=== PATIENT | female | born 1990 | race Caucasian/White ===

== ENCOUNTER 2017-10-26 22:01 | Emergency (ER) | payer BC, OTHER ==
[2017-10-26 22:54] LABS: Bilirubin Small (Negative); Blood, Urine Moderate (Negative); Clarity Cloudy (Clear); Glucose, Urine (Dipstick) Negative (Negative); Leukocyte Small (Negative); Nitrite Negative (Negative); Protein, Urine (Dipstick) 30 mg/dL (Neg-Trace)
[2017-10-26 22:55] LABS: Specific Gravity, Urine 1.034 (1.002-1.036)
[2017-10-26 22:59] LABS: Pregnancy Test - Urine (BHCG) Negative (Negative); Pregu Control Background? CLEAR/WHITE (CLR/WHITE); Pregu Control Bar Appear? YES (CONTROL BAR); Specific Gravity 1.034 (1.002-1.036)
[2017-10-26 23:05] LABS: Hyaline Casts/LPF NONE SEEN LPF (0-3 Hyaline); RBC/HPF 0-3 HPF (0-3)
[2017-10-26 23:06] LABS: Bacteria/HPF 2+ HPF (None Seen)
== END 2017-10-26 23:17 | disposition home or self-care (01) ==
LOC: SCSER 22:01
DX: J06.9 Acute upper respiratory infection, unspecified (principal); N39.0 Urinary tract infection, site not specified
CPT/HCPCS: 81003; 81015; 81025; 87081; 87430; 87804; 99283

== ENCOUNTER 2019-01-09 16:55 | Emergency (ER) | payer BC ==
--- NOTE | 2019-01-09 18:31 | ULT ---
Right lower extremity venous Doppler ultrasound: 01/09/2019 COMPARISON: None HISTORY: female with right lower extremity swelling, edema, assess for DVT TECHNIQUE: Multiplanar grayscale sonographic imaging of the venous structures right lower extremity. Color flow and spectral analysis FINDINGS: Right common femoral vein, greater saphenous vein, profunda femoral vein, femoral vein, pop liteal vein, and posterior tibial vein are patent. Normal blood flow, augmentation, and compression within the deep venous system on the right. No evidence for DVT. IMPRESSION: No evidence for deep venous thrombosis of the right lower extremity.
[2019-01-09 19:05] LABS: Bilirubin Negative (Negative); Blood, Urine Negative (Negative); Clarity CLEAR (Clear); Glucose, Urine (Dipstick) Negative (Negative); Leukocyte Small (Negative); Nitrite Negative (Negative); Protein, Urine (Dipstick) Negative (Neg-Trace); Specific Gravity, Urine 1.016 (1.002-1.036); Urobilinogen 0.2 mg/dL (0.2-1.0); pH, Urine 6.5 (5.0-9.0)
[2019-01-09 19:08] LABS: Hyaline Casts/LPF 0-3 HYALINE CAST LPF (0-3 Hyaline); RBC/HPF 0-3 HPF (0-3)
[2019-01-09 19:21] LABS: Bacteria/HPF 1+ HPF (None Seen)
== END 2019-01-09 19:34 | disposition home or self-care (01) ==
LOC: ERS 16:55
DX: O99.89 Other specified diseases and conditions complicating pregnancy, childbirth and the puerperium (principal); R60.0 Localized edema; O99.342 Other mental disorders complicating pregnancy, second trimester; F41.9 Anxiety disorder, unspecified; F32.9 Major depressive disorder, single episode, unspecified; Z3A.24 24 weeks gestation of pregnancy
CPT/HCPCS: 81003; 81015; 87086

== ENCOUNTER 2019-03-18 13:24 | Day surgery (SDC) | payer BC ==
[2019-03-18] MEDS ORDERED: hydrALAZINE 20 MG/ML VIAL SLOW IVP PRN (13:56)
[2019-03-18] MEDS ORDERED: Ondansetron PF 4 MG/2 ML Vial IVP SCH (14:00)
[2019-03-18] MEDS ORDERED: Lactated Ringer's 1,000 ML IV SCH (14:00)
[2019-03-18] MEDS ORDERED: Ondansetron PF 4 MG/2 ML Vial ONE (14:06)
[2019-03-18 14:23] VITALS: BMI 31.4
--- NOTE | 2019-03-18 17:47 | PRG ---
DATE OF SERVICE: 03/18/2019 PRIMARY OB: Carmen Ha MD. CHIEF COMPLAINT: Nausea, vomiting, and diarrhea. HISTORY OF PRESENT ILLNESS: The patient is a 28-year-old, G1, P0 female with an intrauterine at 33 weeks and 5 days, who presented to Labor and Delivery today after experiencing overnight and this morning persistent nausea and vomiting with diarrhea beginning this morning. The patient called and was counseled to come here to Labor and Delivery for evaluation. The patient reports that she does have a diagnosis of preeclampsia and that her doctor has considering an early induction. The patient denies any recent illness with fever or cough, headache, or chest pain. She has experienced some shortness of breath off and on that she attributes to her asthma and primarily to her . She does have asthma and has used albuterol intermittently last being used a couple months ago. The patient does report nausea and vomiting and is able to keep down some fluid. She reports that she has incontinence when she vomits and is unable to tell me how often she is urinating from her baseline. Notes that she has peed today at least once this morning. The patient denies constipation. Reports some hip problems baseline for the . Denies bleeding or leakage of fluid. Denies urinary urgency or frequency. PAST MEDICAL HISTORY: Significant for asthma and reported preeclampsia with this . PAST SURGICAL HISTORY: She has had a breast augmentation. ALLERGIES: NO KNOWN DRUG ALLERGIES. OB LABS: Unavailable at time of dictation. SOCIAL HISTORY: Denies drug, alcohol, or tobacco use. MEDICATIONS: 1. Albuterol p.r.n. 2. vitamins. LABORATORY DATA: Reviewing labs from 2 days ago from the clinic, the patient shows no evidence of lab abnormalities with normal platelets, normal LFTs, and normal creatinine. REVIEW OF SYSTEMS: Per HPI. PHYSICAL EXAMINATION: VITAL SIGNS: Blood pressures over 2 hours have all been within normal limits, 130s over 60s to 70s. Heart rate in the 90s. Saturating 100% on room air. GENERAL: She appears to be in no acute distress. She is alert, oriented, cooperative, and pleasant to interact with. HEAD: Normocephalic and atraumatic. LUNGS: Clear to auscultation bilaterally. HEART: Tachycardic on initial presentation with a regular rhythm. ABDOMEN: Gravid, soft, and nontender. EXTREMITIES: Nontender and nonedematous. : Exam has been deferred at this time. heart tracing initially was noted to be in the 170s with moderate long-term variability. Tocometer not showing any contraction pattern. After receiving a liter and half of IV fluids, baseline had dropped down in the 150s with moderate long-term variability positive 15 x 15 accelerations and the patient was able to urinate. With recent labs a couple days ago, we have not repeated labs here in the Labor and Delivery. ASSESSMENT AND PLAN: The patient is a 28-year-old primipara with gastroenteritis, which has been presenting fairly frequently in recent weeks. The patient has been given reassurance. She has been hydrated, has not had any vomiting since being given Zofran, though she did vomit twice prior to that. The patient is being discharged to home with reassurance. She has been given a prescription of Zofran for p.r.n. use at home and encouraged to stay hydrated. The patient will follow up with her primary OB, Dr. Ha tomorrow for a scheduled visit and ultrasound. Fetus has a category 1 tracing and reactive NST and the patient has no signs or symptoms of worsening preeclampsia at this time. Job ID: [id number]
== END 2019-03-18 16:10 | disposition home health service (06) ==
LOC: L&D/OP 13:24
PROVIDERS: ATTEND Student in an Organized Health Care Education/Training Program
DX: O99.613 Diseases of the digestive system complicating pregnancy, third trimester (principal); K52.9 Noninfective gastroenteritis and colitis, unspecified; O99.513 Diseases of the respiratory system complicating pregnancy, third trimester; J45.909 Unspecified asthma, uncomplicated; Z3A.33 33 weeks gestation of pregnancy; Z88.2 Allergy status to sulfonamides; Z88.1 Allergy status to other antibiotic agents
CPT/HCPCS: 96360; 96361; 96375; 99283; J2405

== ENCOUNTER 2019-03-23 12:49 | Inpatient (IN) | payer BC ==
[2019-03-23 13:31] VITALS: BMI 31.3
[2019-03-23 14:08] LABS: Amnisure Test RUPTURE DETECTED (No Rupture)
[2019-03-23 14:09] LABS: Amnisure Internal Control QC ACCEPTABLE (ACCEPTABLE)
[2019-03-23] MEDS: Lactated Ringer's 1,000 ML IV SCH ×2 (14:33→23:06)
[2019-03-23] MEDS ORDERED: NS w/ Oxytocin 10 units 500 ML ONE (15:00)
[2019-03-23] MEDS ORDERED: hydrALAZINE 20 MG/ML VIAL SLOW IVP PRN (15:11)
[2019-03-23] MEDS ORDERED: Lactated Ringer's 1,000 ML IV SCH (15:11)
[2019-03-23] MEDS ORDERED: HYDROcodone/Acetaminophen 5/325 mg Tablet PO PRN ×2 (15:11)
[2019-03-23] MEDS ORDERED: Ibuprofen 800 MG TAB PO PRN (15:11)
[2019-03-23] MEDS ORDERED: Butorphanol Tartrate 1 MG/ML VIAL SLOW IVP PRN (15:11)
[2019-03-23] MEDS ORDERED: Lidocaine 1% (PF) 30 ML VIAL SC PRN (15:11)
[2019-03-23] MEDS ORDERED: Promethazine HCl 25 MG/ML VIAL IM PRN ×2 (15:11→22:29)
[2019-03-23] MEDS ORDERED: Ondansetron PF 4 MG/2 ML Vial IVP PRN ×2 (15:11→22:29)
[2019-03-23 15:41] LABS: Hemoglobin 10.9 g/dL (12.0-16.0); Mean Corpuscular HGB CONC 32.9 g/dL (32.0-36.0); Mean Corpuscular Hemoglobin 27.4 pg (27.0-31.0); Mean Corpuscular Volume 83.5 fL (78.0-98.0); Platelet Count 157 thou/uL (130-400); RBC Distribution Width 13.9 % (11.5-14.5); Red Blood Cell (RBC) Count 3.98 mill/uL (4.20-5.40)
[2019-03-23 16:16] LABS: Bacteria/HPF None Seen HPF (None Seen); Bilirubin Negative (Negative); Blood, Urine Negative (Negative); Clarity Clear (Clear); Glucose, Urine (Dipstick) Normal (Negative); Leukocyte Negative Leu/uL (Negative); Mucous/LPF Rare LPF (<2+); Nitrite Negative (Negative); Protein, Urine (Dipstick) 10 mg/dL (Neg-Trace); Urobilinogen Normal mg/dL (Less than 2)
[2019-03-23 16:19] LABS: Syphilis Antibody Nonreactive (Nonreactive); Syphilis Antibody Index 0.03 S/CO (<1.00 Non-Reactive)
[2019-03-23 16:20] LABS: HBSAg Index 0.52 S/CO (0-0.99); Hep B Surf Ag Non-Reactive S/CO (NonReactive)
[2019-03-23 16:44] LABS: AST (SGOT) 16 U/L (5-34); Anion Gap 15 mmol/L (10-20); BUN (Urea Nitrogen) 6 mg/dL (7.0-18.7); Calc. Creatinine Clearance 250 mL/min (70-130); Calcium 8.7 mg/dL (7.8-10.44); Carbon Dioxide 21 mmol/L (22-29); Chloride 105 mmol/L (98-107); Estimated GFR-MDRD Greater than 90; Glucose 71 mg/dL (70-105); Potassium 3.8 mmol/L (3.5-5.1); Sodium 137 mmol/L (136-145)
--- NOTE | 2019-03-23 18:21 | PDOC.LDHP ---
Labor and Delivery H&P Chief complaint: loss of fluid HPI: 28yo at 34w3d by LMP c/o LOF clear ever since 0800 this am. Some cramps, no VB. No sx PIH. 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 Current medications: pre-lester vitamins, other (symbicort, albuterol, iron) Previous surgical history: other (breast aug, LEEP) Allergies/Adverse Reactions: Allergies Allergy/AdvReac Type Severity Reaction Status Date / Time erythromycin base Allergy Verified 03/23/19 13:32 [From Pediazole] sulfisoxazole Allergy Verified 03/23/19 13:32 [From Pediazole] Social history: none - Physical Exam Vital signs reviewed and normal: yes Abnormal vital signs: mild range BP x 1 General: NAD Heart: RRR Lungs: CTAB Abdomen: gravid Extremeties: no edema FHT: category 1 [place] contractions every: 4-5min - Vaginal Exam cm dilated: 2 Effacement: 90% Station: -2 - OB Labs Blood type: O RH: positive Antibody Screen: negative HIV: negative RPR: negative HEPSAg: negative 1 hour GCT: negative GBS: negative Urine drug screen: negative Rubella: immune - Assessment L&D Assessment: premature rupture of membranes - Plan Plan: admit to L&D, labor augmentation if indicated, informed consent obtained, anesthesia consult for pain management -: PIH labs wnl today, BP nl-mild, no sx PIH. If severe features will Mag Prematurity- s/p BMZ last week GBS negative.
[2019-03-23] MEDS ORDERED: Fentanyl 4 mcg/Bup 0.1% Cadd 100 ML ONE (21:49)
[2019-03-23] MEDS ORDERED: Naloxone HCl 0.4 mg/ml Vial IVP PRN ×2 (22:29)
[2019-03-23] MEDS ORDERED: Acetaminophen 325 MG TAB PO PRN (22:29)
[2019-03-23] MEDS ORDERED: diphenhydrAMINE 50 MG/ML VIAL IVP PRN (22:29)
[2019-03-23] MEDS ORDERED: Lactated Ringer's 500 ML IV PRN (22:29)
[2019-03-23] MEDS ORDERED: ePHEDrine/0.9% NaCl/PF SYRINGE 50 mg/10 ml SLOW IVP PRN (22:29)
[2019-03-23] MEDS ORDERED: Fentanyl 4 mcg/Bupivacaine 0.1% Cassette 100 ML EPIDURAL SCH (22:30)
[2019-03-23] MEDS ORDERED: Communication Order-Pharmacy FS SCH (22:30)
[2019-03-24] MEDS: NS / Oxytocin 40 units/1000ml 1,000 ML IV PRN ×2 (03:35→05:05)
--- NOTE | 2019-03-24 03:43 | PDOC.OPDEL ---
OB Operative/Delivery Note Delivery Dr/Surgeon: Leland Assist: n/a Pre-Delivery Diagnosis: ruptured membrane (, PIH) Procedure/Post Delivery Dx: spontaneous vaginal delivery Weeks gestation: 34 Anesthesia: epidural - Findings A Sex: male - Additional Findings/Plan Placenta delivered: spontaneous Repaired Obstetrical Laceration: none Estimated blood loss: 100 Post delivery plan: routine recovery
[2019-03-24] MEDS ORDERED: Milk Of Magnesia 30 ML UDCUP PO PRN (06:33)
[2019-03-24] MEDS ORDERED: NS / Oxytocin 40 units/1000ml 1,000 ML IV SCH (06:33)
[2019-03-24] MEDS ORDERED: Preparation H Ointment 28 GM TUBE PR PRN (06:33)
[2019-03-24] MEDS ORDERED: Benzocaine-Menthol 82.5 ML CAN TOP PRN (06:33)
[2019-03-24] MEDS ORDERED: Ondansetron PF 4 MG/2 ML Vial IVP PRN (06:33)
[2019-03-24] MEDS ORDERED: diphenhydrAMINE 25 MG CAP PO PRN (06:33)
[2019-03-24] MEDS ORDERED: HYDROcodone/Acetaminophen 5/325 mg Tablet PO PRN ×2 (06:33)
[2019-03-24] MEDS ORDERED: Bisacodyl 10 MG SUPP PR PRN (06:33)
[2019-03-24] MEDS ORDERED: Lanolin Ointment 7 GM TUBE TOP PRN (06:33)
[2019-03-24] MEDS ORDERED: Promethazine HCl 25 MG/ML VIAL IM PRN (06:33)
[2019-03-24] MEDS ORDERED: hydrALAZINE 20 MG/ML VIAL SLOW IVP PRN (06:33)
[2019-03-24] MEDS: Ferrous Sulfate 325 MG TAB PO SCH ×2 (09:05→16:49)
[2019-03-24] MEDS: Docusate Calcium (SURFAK) 240 MG CAP PO SCH ×2 (09:45→21:44)
[2019-03-24] MEDS: Prenatal Vitamin 1 TAB PO SCH (09:45)
[2019-03-24] MEDS ORDERED: Sodium Chloride 0.9% 10 ML ONE (10:59)
--- NOTE | 2019-03-24 13:19 | PDOC.PP ---
Post Progress Note Post Day #: 0 PO intake tolerated: yes Flatus: yes Ambulation: yes Vital Signs (12 hours) Temp Pulse Resp BP Pulse Ox 03/24/19 12:48 98.1 F 87 20 132/77 98 03/24/19 08:30 97.6 F 86 16 119/66 99 03/24/19 06:26 98.1 F 92 18 132/70 98 Weight Weight 206 lb - Physical Examination General: NAD Respiratory: non-labored breathing Abdominal: no distention, appropriately TTP Skin: no rash Neurological: no gross focal deficits Psychiatric: normal affect Result Diagrams: 03/23/19 15:27 03/23/19 15:34 Additional Labs: Post Labs Blood Type O POSITIVE 03/23/19 23:48 Hep Bs Antigen Non-Reactive S/CO (NonReactive) 03/23/19 15:27 - Assessment/Plan PPD1 s/p PTSVD at 34w 2/2 PPROM VSSAF Doing well, lochia appropriate Infant in NICU GHTN- no sx PIH, BP nl Cont PP care
[2019-03-24] MEDS: Ibuprofen 800 MG TAB PO SCH ×2 (13:37→21:44)
[2019-03-25 05:54] LABS: Hemoglobin 10.8 g/dL (12.0-16.0); Mean Corpuscular HGB CONC 32.1 g/dL (32.0-36.0); Mean Corpuscular Hemoglobin 27.4 pg (27.0-31.0); Mean Corpuscular Volume 85.2 fL (78.0-98.0); Mean Platelet Volume 7.5 fL (7.4-10.4); Platelet Count 143 thou/uL (130-400); RBC Distribution Width 14.2 % (11.5-14.5); Red Blood Cell (RBC) Count 3.96 mill/uL (4.20-5.40); White Blood Cell (WBC) Count 13.7 thou/uL (4.8-10.8)
[2019-03-25] MEDS: Ibuprofen 800 MG TAB PO SCH ×3 (06:08→21:14)
[2019-03-25] MEDS: Ferrous Sulfate 325 MG TAB PO SCH ×2 (08:25→17:59)
[2019-03-25] MEDS ORDERED: Adacel (T-DAP) 0.5 ML SYRINGE IM ONE (09:00)
[2019-03-25] MEDS: Prenatal Vitamin 1 TAB PO SCH (10:38)
[2019-03-25] MEDS: Docusate Calcium (SURFAK) 240 MG CAP PO SCH ×2 (10:38→21:14)
[2019-03-26] MEDS: Ibuprofen 800 MG TAB PO SCH (06:01)
--- NOTE | 2019-03-26 08:27 | PDOC.PP ---
Post Progress Note Post Day #: 2 PO intake tolerated: yes Flatus: yes Ambulation: yes Vital Signs (12 hours) Temp Pulse Resp BP 03/26/19 00:00 97.7 F 77 20 124/66 Weight Weight 206 lb - Physical Examination General: NAD Respiratory: non-labored breathing Abdominal: no distention, appropriately TTP Fundus firm & at: umb-2 Neurological: no gross focal deficits Psychiatric: normal affect Result Diagrams: 03/25/19 05:40 03/23/19 15:34 Additional Labs: Post Labs Blood Type O POSITIVE 03/23/19 23:48 Hep Bs Antigen Non-Reactive S/CO (NonReactive) 03/23/19 15:27 - Assessment/Plan PPD2 s/p PTSVD due to PPROM with GHTN VSSAF GHTN- BP nl no sx PIH, labs wnl Doing well, pain controlled Breastpumping, in NICU Rh pos RImm DC home FU 6w
[2019-03-26 08:39] VITALS: BP 128/74; TEMP 98
[2019-03-26] MEDS: Ferrous Sulfate 325 MG TAB PO SCH (08:40)
[2019-03-26] MEDS: Docusate Calcium (SURFAK) 240 MG CAP PO SCH (08:47)
[2019-03-26] MEDS: Prenatal Vitamin 1 TAB PO SCH (08:47)
== END 2019-03-26 10:35 | disposition home or self-care (01) | DRG 806 ==
LOC: L&D/OP 12:49 → L&D 21:23 → 3SW 03-24 06:47
PROVIDERS: ADMIT Student in an Organized Health Care Education/Training Program; ATTEND Student in an Organized Health Care Education/Training Program
PROC: 10E0XZZ Delivery of Products of Conception, External Approach (ICD-10-PCS; principal; 2019-03-24)
DX: O60.14X0 Preterm labor third trimester with preterm delivery third trimester, not applicable or unspecified (principal); O98.52 Other viral diseases complicating childbirth; Z37.0 Single live birth; Z3A.34 34 weeks gestation of pregnancy; O13.4 Gestational [pregnancy-induced] hypertension without significant proteinuria, complicating childbirth; J45.909 Unspecified asthma, uncomplicated; B00.9 Herpesviral infection, unspecified; F41.9 Anxiety disorder, unspecified; O99.344 Other mental disorders complicating childbirth; F32.9 Major depressive disorder, single episode, unspecified; F90.9 Attention-deficit hyperactivity disorder, unspecified type; O99.52 Diseases of the respiratory system complicating childbirth
CPT/HCPCS: 36415; 51702; 80048; 81001; 84112; 84450; 85027; 86780; 86850; 86900; 86901; 87340; 99285; J2001; J2405; J2590